=== PATIENT | female | born 1940 | race Caucasian/White ===

== ENCOUNTER 2020-09-14 21:10 | Emergency (ER) | payer MEDICARE ==
[~2020-09-14] VITALS: Ht 165.1 cm; Wt 94.8 kg
[2020-09-14 22:05] LABS: BASOPHILS % (AUTO) 1 % (0-1); EOSINOPHILS % (AUTO) 4 % (1-7); LYMPHOCYTES % (AUTO) 15 % (22-44); MEAN CORPUSCULAR HEMOGLOBIN 29.2 pg (27.0-34.8); MEAN CORPUSCULAR HGB CONC 33.2 g/dL (32.4-35.8); MEAN PLATELET VOLUME 10.7 fL (7.4-10.4); MONOCYTES % (AUTO) 6 % (2-9); NEUTROPHILS % (AUTO) 74 % (42-75); PLATELET COUNT 140 x10^3/uL (130-400); RED BLOOD COUNT 4.35 x10^6/uL (3.82-5.3); RED CELL DISTRIBUTION WIDTH 16.8 % (9.6-15.2)
[2020-09-14 22:12] LABS: ALANINE AMINOTRANSFERASE 27 U/L (12-78); ALBUMIN 3.3 g/dL (3.4-5.0); ANION GAP 8 mmol/L (5-15); CALCIUM 8.6 mg/dL (8.5-10.1); CHLORIDE 104 mmol/L (98-107); CREATININE 1.14 mg/dL (0.55-1.02)
[2020-09-14 22:16] LABS: ALKALINE PHOSPHATASE 96 U/L (45-117); BILIRUBIN,TOTAL 0.7 mg/dL (0.2-1.0); TOTAL PROTEIN 7.1 g/dL (6.4-8.2); TROPONIN I < 0.015 ng/mL (0.000-0.045)
[2020-09-14 23:06] VITALS: BP 113/62
[2020-09-15] MEDS ORDERED: RIVAROXABAN 20 MG TABLET ONE (00:29)
[2020-09-15] MEDS ORDERED: RIVAROXABAN 20 MG TABLET PO ONE (00:30)
== END 2020-09-15 00:43 | disposition home or self-care (01) ==
LOC: ED 21:30
DX: I82.442 Acute embolism and thrombosis of left tibial vein (principal); R06.00 Dyspnea, unspecified; R00.0 Tachycardia, unspecified; I10 Essential (primary) hypertension; E78.00 Pure hypercholesterolemia, unspecified; Z86.711 Personal history of pulmonary embolism
CPT/HCPCS: 36415; 71045; 80053; 83690; 83880; 84484; 85025; 93005; 93970; 99285